=== PATIENT | female | born 1950 | race Caucasian/White ===

== ENCOUNTER → 2016-09-12 | Outpatient (CLI) | payer MEDICARE ==
[~2016-09-12] MED LIST: ACET-749 PO; ALPR0.25 PO; AMLO-110 PO; AMLO5CAP3 PO; ATEN-173 PO; ATOR-24 PO; CHOL1000 PO; MAGN400T6 PO; NVLGI7030 SC; PHEN-775 PO; SERT-234 PO; SULF800T23 PO; TRAMTAB5 PO
--- NOTE | 2016-09-12 17:24 | DIAGNOSTIC IMAGING REPORT ---
KUB HISTORY: URETERIC STONE, N20.1 COMPARISON: KUB 09/05/2016. FINDINGS: The bowel gas pattern is unremarkable. There are no dilated loops of small bowel to suggest an obstruction. Bilateral nephrolithiasis is again noted. Dominant stone within the lower pole the right kidney measures 1 cm. No change in the 9 mm stone within the proximal left ureter. No bladder calculi. No right ureteral calculi. Prior cholecystectomy. No pneumoperitoneum or pneumatosis. IMPRESSION: 1. No change in the 9 mm stone within the proximal left ureter. 2. Stable bilateral nephrolithiasis. Electronically signed by: Jurgen Cooper M.D. 09/12/2016 5:22 PM Dictated Date/Time: 09/12/2016 5:20 PM
== END | disposition home or self-care (01) ==
LOC: C.RAD 16:53
PROVIDERS: ATTEND Urology
DX: N20.1 Calculus of ureter (principal); N20.0 Calculus of kidney

== ENCOUNTER → 2016-09-13 | Day surgery (SDC) | payer BC, MEDICARE ==
--- NOTE | 2016-09-05 15:32 | DIAGNOSTIC IMAGING REPORT ---
CHEST 2 VIEWS ROUTINE CLINICAL HISTORY: Preoperative evaluation. Ureteral stone. COMPARISON STUDY: No previous studies for comparison. FINDINGS: Lung volumes are at the lower limits of normal. There is no pneumothorax or pleural effusion. There are cholecystectomy clips. Pulmonary vascularity is normal. There is no consolidation to suggest pneumonia. Cardiomediastinal silhouette is normal. IMPRESSION: No acute cardiopulmonary findings. Electronically signed by: Tonio Ornelas M.D. 09/05/2016 3:30 PM Dictated Date/Time: 09/05/2016 3:30 PM
--- NOTE | 2016-09-05 15:35 | DIAGNOSTIC IMAGING REPORT ---
KUB CLINICAL HISTORY: Left ureteral stone. COMPARISON STUDY: None. FINDINGS: Multiple bilateral renal calculi are noted. The largest of these is a 7 mm left renal calculus. Note is made of a 1 x 0.5 cm calcification that projects superior to the left transverse process of L4. Pelvic calcifications likely reflect vascular calcifications and phleboliths although distal ureteral calculi would be difficult to exclude. Bowel gas pattern is normal. There are cholecystectomy clips. IMPRESSION: 1. Suspected 1 x 0.5 cm proximal left ureteral calculus. Possible punctate adjacent calculus. 2. Bilateral nephrolithiasis. 3. Numerous pelvic calcifications which likely reflect phleboliths and vascular calcifications although distal ureteral calculi would be difficult to exclude. Electronically signed by: Tonio Ornelas M.D. 09/05/2016 3:33 PM Dictated Date/Time: 09/05/2016 3:31 PM
[2016-09-05 15:54] LABS: BASO % 0.2 %; BASO ABS # 0.02 K/uL (0-0.2); COMPLETE YES; EOS % 3.4 %; HEMATOCRIT 38.5 % (37-47); IG% 0.2 %; LYMPH ABS # 2.71 K/uL (1.2-3.4); MEAN CELL VOLUME 84.2 fL (80-100); MEAN CORPUSCULAR HEMOGLOBIN 29.3 pg (25-34); MEAN CORPUSCULAR HGB CONC 34.8 g/dl (32-36); MEAN PLATELET VOLUME 9.5 fL (7.4-10.4); NEUT % 58.2 %; PLATELET COUNT 226 K/uL (130-400); RED BLOOD COUNT 4.57 M/uL (4.2-5.4)
[2016-09-05 16:29] LABS: BLOOD UREA NITROGEN 20 mg/dl (7-18); BUN/CREATININE RATIO 25.3 (10-20); CALCIUM 9.8 mg/dl (8.5-10.1); CARBON DIOXIDE 29 mmol/L (21-32); CHLORIDE 104 mmol/L (98-107); CREATININE 0.81 mg/dl (0.60-1.20); GLUCOSE 132 mg/dl (70-99); POTASSIUM 3.8 mmol/L (3.5-5.1); SODIUM 141 mmol/L (136-145)
[2016-09-09 12:39] VITALS: Ht 154.9 cm; Wt 65.9 kg
[~2016-09-13] VITALS: Ht 154.9 cm; Wt 65.9 kg
[~2016-09-13] MED LIST changes: +ATROPINE SULFATE 0.1 MG/ML 5ML SYR IV PRN; +CIPROFLOXACIN / D5W 400 MG IV SCH; +DEXAMETHASONE SOD INJ 4 MG/ML VIAL ONE; +EpHEDrine SULFATE 50MG/5ML SYR ONE; +EpHEDrine SULFATE INJ 50 MG/ML AMP IV PRN; +FENTANYL CITRATE INJ 50 MCG/1 ML 2 ML VIAL ONE; +LACTATED RINGER'S 1000ML 1,000 ML IV SCH; +LIDOCAINE HCL 2% 2 ML VIAL (20MG/ML) ONE; +MIDAZOLAM HCL 1 MG/ML 2ML VIAL ONE; +ONDANSETRON INJ 2 MG/ML 2 ML VIAL IV PRN; +ONDANSETRON INJ 2 MG/ML 2 ML VIAL ONE; +PROPOFOL IV EMULSION 10 MG/ML 20 ML VIAL IV ONE; +TRAMADOL/ACETAMINOPHEN 37.5/325MG TAB PO PRN
--- NOTE | 2016-09-13 07:21 | History & Physical Bridge Note ---
H&P Re-Evaluation Bridge Note: I have examined the patient, reviewed the History & Physical and in the interval since the performance of the History & Physical I have noted the following changes of clinical significance: No changes noted
--- NOTE | 2016-09-13 07:53 | [facility] Post Operative Brief Note ---
Immediate Operative Summary Operative Date Sep 13, 2016. Pre-Operative Diagnosis left ureteral stone Post-Operative Diagnosis same Procedure(s) Performed left eswl Surgeon willy Cash Specialist Surgeon(s) none Estimated Blood Loss none Findings left ureteral stone Specimens none
--- NOTE | 2016-09-13 07:57 | Discharge Instructions-SurgCtr ---
Discharge Instructions Visit Reason for Visit: Stones N20.1; Discharge Discharge Diagnosis / Problem: stone Discharge Goals Goal(s): Therapeutic intervention Activity Recommendations Activity Limitations: resume your previous activity (take it easy today) Anesthesia . Post Anesthesia Instructions: If you have had General Anesthesia or IV Sedation: * Do not drive today. * Resume driving when surgeon permits. * Do not make important decisions or sign legal documents today. * Call surgeon for: 1. Temperature elevations greater than 101 degrees F. 2. Uncontrollable pain. 3. Excessive bleeding. 4. Persistent nausea and vomiting. 5. Medication intolerance (nausea, vomiting or rash). * For nausea and vomiting use only clear liquids such as: tea, soda, bouillon until nausea subsides, then gradually increase diet as tolerated. * If you have any concerns or questions, call your surgeon's office. If physician is unavailable and it is an emergency, call 911 or go to the nearest emergency room. . Instructions / Follow-Up Instructions / Follow-Up MEDICATIONS: Resume previous medications unless instructed otherwise by your surgeon. Resume pre-ESWL medication except for aspirin, coumadin or other blood thinners. __ Toradol 10 mg every 6 hours for initial pain. __ Lortab 5 mg 1-2 every 4 hours for pain. __ Percocet 5 mg 1-2 every 4 hours for pain. __ Macrodantin 50 mg x 3 a day. __ Flomax 1 tab daily one half (1/2) hour after supper. _x__ Ultracet 1 tablet efvery 6 hours if needed for pain SPECIAL CARE INSTRUCTIONS: 1. Get KUB (x-ray) _x_ day before or day of office visit and bring x-ray to office __ get x-ray 2 days before and tell office you are getting x-rays when you call for the appointment. 2. Strain ALL urine. 3. Please call if you have a fever, chills, severe pain, or constant dribbling of urine. 4. Office phone number . FOLLOW UP VISIT: Please call the office to schedule a follow-up appointment at . Diet Recommendations Home Diet: resume previous diet Procedures Procedures Performed: Left Extracorporeal Shock Wave Lithotripsy Pending Studies Studies pending at discharge: no Medical Emergencies . Who to Call and When: Medical Emergencies: If at any time you feel your situation is an emergency, please call 911 immediately. . Non-Emergent Contact Non-Emergency issues call your: Urologist . . "Provider Documentation" section prepared by Dimitris Oconnell. [place] Drug Monitoring Program Search Results: patient reviewed within database
[2016-09-13] MEDS: FENTANYL CITRATE INJ 50 MCG/1 ML 2 ML VIAL IV PRN ×2 (08:40→08:49)
--- NOTE | 2016-09-13 09:13 | Anesthesia Progress Nt - [facility] ---
Anesthesia Post Op Note Date & Time Sep 13, 2016 at 09:12 Vital Signs Pain Intensity: 5 Vital Signs Past 12 Hours Date Time Temp Pulse Resp B/P Pulse Ox O2 Delivery O2 Flow Rate FiO2 09/13/16 08:26 36.2 107 16 136/67 97 Mask 6 09/13/16 06:34 36.5 72 16 121/70 96 Room Air Notes Mental Status: alert / awake / arousable, participated in evaluation Pt Amnestic to Procedure: Yes Nausea / Vomiting: adequately controlled Pain: adequately controlled Airway Patency, RR, SpO2: stable & adequate BP & HR: stable & adequate Hydration State: stable & adequate Anesthetic Complications: no major complications apparent
[2016-09-13 09:48] VITALS: TEMP 36.5
[2016-09-13 10:24] VITALS: BP 117/64; PULSE 79; O2SAT 95
--- NOTE | 2016-09-17 13:39 | OPERATIVE REPORT ---
DATE OF OPERATION: 09/13/2016 PREOPERATIVE DIAGNOSIS: Left ureteral calculus. POSTOPERATIVE DIAGNOSIS: Same. PROCEDURE: Extracorporeal shockwave lithotripsy. FINDINGS: KUB showed stone left ureter. SURGEON: Dr. Magana. DRAINS: None. COMPLICATIONS: None. SPECIMENS: None. INDICATIONS: The patient is a 65-year-old white female with a left ureteral stone being brought in for ESWL. DETAILS OF PROCEDURE: The patient was brought to the litho suite. He was correctly identified and the stone was visualized on his most recent x-rays. After the correct time out was performed the patient was positioned over the therapy head. An adequate level of anesthesia was administered. The extracorporeal shockwave lithotripsy treatment was then commenced. Please see the [facility] sheet for complete treatment summary. After completion of the procedure the patient was taken to the recovery room in stable condition. I attest to the content of the Intraoperative Record and any orders documented therein. Any exceptio ns are noted below.
== END | disposition home or self-care (01) ==
LOC: X.SURG 06:18
PROVIDERS: ATTEND Urology
DX: N20.1 Calculus of ureter (principal); I10 Essential (primary) hypertension; E11.9 Type 2 diabetes mellitus without complications; Z79.4 Long term (current) use of insulin

== ENCOUNTER → 2016-09-19 | Outpatient (CLI) | payer MEDICARE ==
[~2016-09-19] MED LIST changes: -ATROPINE SULFATE 0.1 MG/ML 5ML SYR IV PRN; -CIPROFLOXACIN / D5W 400 MG IV SCH; -DEXAMETHASONE SOD INJ 4 MG/ML VIAL ONE; -EpHEDrine SULFATE 50MG/5ML SYR ONE; -EpHEDrine SULFATE INJ 50 MG/ML AMP IV PRN; -FENTANYL CITRATE INJ 50 MCG/1 ML 2 ML VIAL ONE; -LACTATED RINGER'S 1000ML 1,000 ML IV SCH; -LIDOCAINE HCL 2% 2 ML VIAL (20MG/ML) ONE; -MIDAZOLAM HCL 1 MG/ML 2ML VIAL ONE; -ONDANSETRON INJ 2 MG/ML 2 ML VIAL IV PRN; -ONDANSETRON INJ 2 MG/ML 2 ML VIAL ONE; -PROPOFOL IV EMULSION 10 MG/ML 20 ML VIAL IV ONE; -TRAMADOL/ACETAMINOPHEN 37.5/325MG TAB PO PRN
== END | disposition home or self-care (01) ==
LOC: C.LAB 09:55
PROVIDERS: ATTEND Nurse Practitioner Adult Health
DX: N39.0 Urinary tract infection, site not specified (principal)

== ENCOUNTER → 2016-09-25 | Outpatient (CLI) | payer MEDICARE ==
--- NOTE | 2016-09-25 12:55 | DIAGNOSTIC IMAGING REPORT ---
KUB CLINICAL HISTORY: Ureteral stone. FINDINGS: An AP supine abdominal radiograph is compared to study dated 09/12/2016 and correlated with abdominal CT dated 08/20/2016. There is a nonobstructed abdominal bowel gas pattern. Cholecystectomy clips are noted. There are nonobstructing right renal calculi measuring up to 10 mm. Additional calculi are seen projecting over the left kidney. An 8 mm calcification or cluster of calcifications projects over the left vesicoureteral junction. This likely represents progression of the obstructing calculus in the mid left ureter seen on 09/12/2016. No calculi are seen along the course of the right ureter. Skeletal structures are osteopenic. Lumbosacral spondylosis is observed. IMPRESSION: 1. An 8 mm calculus or cluster of calculi is now seen projecting over the left vesicoureteral junction. This likely represents distal passage of the mid ureteral stone seen on 09/12/2016. 2. Additional bilateral nonobstructing renal calculi as above. Electronically signed by: Dimitri Eaton M.D. 09/25/2016 12:54 PM Dictated Date/Time: 09/25/2016 12:36 PM
== END | disposition home or self-care (01) ==
LOC: C.RAD1850 10:05
PROVIDERS: ATTEND Urology
DX: N20.2 Calculus of kidney with calculus of ureter (principal)

== ENCOUNTER → 2016-10-09 | Outpatient (CLI) | payer MEDICARE ==
[2016-10-09 13:58] LABS: BASO % 0.2 %; BASO ABS # 0.01 K/uL (0-0.2); COMPLETE YES; EOS % 2.5 %; HEMATOCRIT 40.2 % (37-47); LYMPH ABS # 2.33 K/uL (1.2-3.4); MEAN CELL VOLUME 85.4 fL (80-100); MEAN CORPUSCULAR HEMOGLOBIN 29.3 pg (25-34); MEAN CORPUSCULAR HGB CONC 34.3 g/dl (32-36); MEAN PLATELET VOLUME 10.2 fL (7.4-10.4); MONO % 6.3 %; PLATELET COUNT 173 K/uL (130-400); RED BLOOD COUNT 4.71 M/uL (4.2-5.4); WHITE BLOOD COUNT 6.48 K/uL (4.8-10.8)
[2016-10-09 14:37] LABS: BLOOD UREA NITROGEN 19 mg/dl (7-18); BUN/CREATININE RATIO 23.2 (10-20); CALCIUM 9.8 mg/dl (8.5-10.1); CARBON DIOXIDE 28 mmol/L (21-32); CHLORIDE 106 mmol/L (98-107); CREATININE 0.81 mg/dl (0.60-1.20); GLUCOSE 89 mg/dl (70-99); POTASSIUM 3.8 mmol/L (3.5-5.1); SODIUM 142 mmol/L (136-145)
== END | disposition home or self-care (01) ==
LOC: C.LAB1850 12:03
PROVIDERS: ATTEND Urology
DX: N20.0 Calculus of kidney (principal); N20.1 Calculus of ureter

== ENCOUNTER → 2016-10-09 | Outpatient (CLI) | payer MEDICARE ==
--- NOTE | 2016-10-09 09:03 | DIAGNOSTIC IMAGING REPORT ---
KUB CLINICAL HISTORY: Ureteral stone. FINDINGS: 2 AP supine abdominal radiographs are compared to study dated 09/25/16 and correlated with abdominal CT dated 08/20/2016. There is a nonobstructed abdominal bowel gas pattern. Cholecystectomy clips are noted. There are nonobstructing right renal calculi measuring up to 10 mm. Additional calculi are seen projecting over the left kidney. An 8 mm calcification or cluster of calcifications projecting over the left vesicoureteral junction is unchanged from 09/25/2016. No calculi are seen along the course of the right ureter. Pelvic phleboliths are noted. The skeletal structures are osteopenic. Lumbosacral spondylosis is observed. IMPRESSION: 1. Unchanged appearance of a calculus or cluster of calculi projecting over the left vesicoureteral junction as compared to the 09/25/2016 examination. 2. Additional bilateral nonobstructing renal calculi as above. Electronically signed by: Dimitri Eaton M.D. 10/09/2016 9:01 AM Dictated Date/Time: 10/09/2016 8:59 AM
== END | disposition home or self-care (01) ==
LOC: C.RAD1850 08:47
PROVIDERS: ATTEND Urology
DX: N20.0 Calculus of kidney (principal); N20.1 Calculus of ureter

== ENCOUNTER → 2016-10-21 | Outpatient (CLI) | payer MEDICARE ==
[~2016-10-21] MED LIST changes: -TRAMTAB5 PO
--- NOTE | 2016-10-21 11:36 | DIAGNOSTIC IMAGING REPORT ---
KUB CLINICAL HISTORY: N20.1 Ureteric [id number] COMPARISON STUDY: 10/09/2016 FINDINGS: There is no pathologic bowel dilatation. There are clustered calcifications projected over the lower pole of the left kidney measuring 9 mm in aggregate. There are calcifications projected over the mid and lower pole the right kidney the largest cluster measuring 9 mm. The findings are consistent with bilateral nephrolithiasis. There are surgical clips the right upper quadrant consistent with a prior cholecystectomy. There are scattered pelvic basin calcifications. No definite ureteral calculi are visualized. IMPRESSION: Bilateral nephrolithiasis. Nonspecific pelvic basin calcifications. Electronically signed by: Michelet Nicolas M.D. 10/21/2016 11:35 AM Dictated Date/Time: 10/21/2016 11:31 AM
== END | disposition home or self-care (01) ==
LOC: C.RAD1850 11:19
PROVIDERS: ATTEND Urology
DX: N20.1 Calculus of ureter (principal); N20.0 Calculus of kidney

== ENCOUNTER → 2016-10-22 | Day surgery (SDC) | payer MEDICARE ==
[2016-10-11 10:03] VITALS: BMI 27.0
[~2016-10-22] VITALS: Ht 154.9 cm; Wt 65.9 kg
[~2016-10-22] MED LIST changes: +ACETAMINOPHEN/CODEINE 300/30MG TAB PO PRN; +ATROPINE SULFATE 0.1 MG/ML 5ML SYR IV PRN; +CIPROFLOXACIN / D5W 400 MG IV SCH; +CONRAY 30% 150ML BOTTLE INSTIL ONE; +EpHEDrine SULFATE 50MG/5ML SYR ONE; +EpHEDrine SULFATE INJ 50 MG/ML AMP IV PRN; +FENTANYL CITRATE INJ 50 MCG/1 ML 2 ML VIAL IV PRN; +FENTANYL CITRATE INJ 50 MCG/1 ML 2 ML VIAL ONE; +KETOROLAC TROMETHAMINE 30 MG/ML VIAL IV. STA; +LACTATED RINGER'S 1000ML 1,000 ML IV SCH; +LIDOCAINE HCL 2% 2 ML VIAL (20MG/ML) ONE; +MIDAZOLAM HCL 1 MG/ML 2ML VIAL ONE; +NURSING VERBAL MED ORDER ONE; +ONDANSETRON INJ 2 MG/ML 2 ML VIAL IV PRN; +ONDANSETRON INJ 2 MG/ML 2 ML VIAL ONE; +PROPOFOL IV EMULSION 10 MG/ML 20 ML VIAL IV ONE; +SODIUM CHLORIDE 0.9% 1000ML 1,000 ML IV SCH
[2016-10-22 05:53] VITALS: BP 134/68; PULSE 60; TEMP 36.5; O2SAT 97; Ht 154.9 cm; Wt 65.9 kg
--- NOTE | 2016-10-22 08:23 | [facility] Post Operative Brief Note ---
Immediate Operative Summary Operative Date Oct 22, 2016. Pre-Operative Diagnosis Nephrolithiasis Post-Operative Diagnosis Nephrolithiasis Procedure(s) Performed Cystoscopy; Left Ureteroscopy; Left Ureteral Stent Insertion; Laser Lithotripsy Surgeon Dr. Bret Gustafson Remote Sensing Technologist Surgeon(s) none Estimated Blood Loss 0 Findings No evidence of continued left ureteral stones. Several small stones within the kidney. These were completely treated with the exception of a stone in the extreme lower pole. This required an approx 270 degree flexion of the scope and I was unable to reach the stone with a laser fiber in place. Specimens None Drains [id number] with string Anesthesia gen Complication(s) None Disposition Recovery Room / PACU (stable)
--- NOTE | 2016-10-22 08:33 | Discharge Instructions ---
Discharge Instructions Admission Reason for Admission: Stones Discharge Discharge Diagnosis / Problem: stones Discharge Goals Goal(s): Decrease discomfort, Improve function, Increase independence, Improve disease control Activity Recommendations Activity Limitations: resume your previous activity Lifting Limitations: none Exercise/Sports Limitations: none May Resume Sexual Activity: when tolerated Shower/Bathe: no limitations Driving or Machine Use: no limitations . Instructions / Follow-Up Instructions / Follow-Up Please come to Dr. Gustafson and Dr. Elam's office on Friday at 11AM to have your stent removed (please do not pull the blue string that is taped to your leg prior to that appointment). Discharge Diet Recommended Diet: Regular Diet Procedures Procedures Performed: Cystoscopy; Left Ureteroscopy; Left Ureteral Stent Insertion; Laser Lithotripsy Pending Studies Studies pending at discharge: no Medical Emergencies . Who to Call and When: Medical Emergencies: If at any time you feel your situation is an emergency, please call 911 immediately. . Non-Emergent Contact Non-Emergency issues call your: Urologist Call Non-Emergent contact if: you have a fever, temperature is above 101.5, your pain is not controlled, your pain is worsening . . "Provider Documentation" section prepared by Rex Figueroa. VTE Core Measure Inpt VTE Proph given/why not?: Treatment not indicated [place] Drug Monitoring Program Search Results: patient reviewed within database (has had several small volume narcotic rx's - all appropriate given her condition)
--- NOTE | 2016-10-22 08:34 | DIAGNOSTIC IMAGING REPORT ---
KUB CLINICAL HISTORY: LT CYSTO/LASER/STENT nephrocalcinosis TECHNIQUE: Image intensifier COMPARISON STUDY: None FINDINGS: Image intensifier utilized for length the left laser lithotripsy and left-sided stent placement. IMPRESSION: Laser lithotripsy and left ureteral stent placement Electronically signed by: Luiz Flood M.D. 10/22/2016 8:32 AM Dictated Date/Time: 10/22/2016 8:31 AM
--- NOTE | 2016-10-22 09:00 | Anesthesiology Progress Note ---
Anesthesia Post Op Note Date & Time Oct 22, 2016 at 09:00 Vital Signs Pain Intensity: 0 Vital Signs Past 12 Hours Date Time Temp Pulse Resp B/P Pulse Ox O2 Delivery O2 Flow Rate FiO2 10/22/16 08:55 88 12 128/68 94 Room Air 10/22/16 08:45 93 12 128/65 99 Mask 10 10/22/16 08:35 99 12 119/62 100 Mask 10 10/22/16 08:27 36.4 75 12 105/59 100 Mask 10 10/22/16 05:53 36.5 60 18 134/68 97 Room Air Notes Mental Status: alert / awake / arousable, participated in evaluation Pt Amnestic to Procedure: Yes Nausea / Vomiting: adequately controlled Pain: adequately controlled Airway Patency, RR, SpO2: stable & adequate BP & HR: stable & adequate Hydration State: stable & adequate Anesthetic Complications: no major complications apparent
--- NOTE | 2016-10-22 09:09 | OPERATIVE REPORT ---
DATE OF OPERATION: 10/22/2016 PREOPERATIVE DIAGNOSIS: Left nephrolithiasis. POSTOPERATIVE DIAGNOSIS: Left nephrolithiasis. PROCEDURES PERFORMED: Cystoscopy, left ureteroscopy, left laser lithotripsy, left ureteral stent placement 6 New Ze[place]ander x 24 cm with a string. ANESTHESIA: General. ESTIMATED BLOOD LOSS: 0. URINE OUTPUT: Not recorded. SPECIMENS: None. COMPLICATIONS: None. DESCRIPTION OF THE PROCEDURE: Savannah Braun was identified in the preoperative holding area. Appropriate informed consents were reviewed and completed and the patient was transported to the operating suite. She received Cipro upon arrival and after induction of general anesthesia she was sterilely prepped and draped in standard fashion. I then passed a 22 [place] cystoscope with 30 degree lens and full inspection of the bladder was carried out without evidence of any mucosal abnormalities. Ureteral orifices were in orthotopic position. I then cannulated the distal left ureter with a 10-[place] double-lumen catheter placed just at the UO. I performed a retrograde pyelogram which revealed no hydronephrosis and no filling defects within the ureter. I then placed 2 wires via this catheter and both were advanced to the kidney without difficulty. I then withdrew the 10-[place]ander double lumen catheter and placed a flexible fiberoptic ureteroscope to the level of the kidney. Full renoscopy was carried out. There were several small Wesley's plaques as well as 2 stones visualized in the lower pole. These were in close proximity to each other, albeit in separate calices. The larger of the 2 stones was in the extremely dependent portion of the kidney and required nearly 270 degree flexion of the scope to reach it. The other was just less than that with about 180 degree flexion of the scope. I passed our smallest laser fiber and freed all of the Wesley's plaques, as well as treated the stone that was at around 180 degree flexion. I attempted to reach the 270 degree stone; however, I was unable to completely flex the scope adequately to reach this. After numerous efforts to flush this out, I decided to leave this stone alone and clear the kidney of all other fragments before exiting the kidney. I confirmed that there were no other large retained fragments and I performed a careful exit ureteroscopy which revealed no ureteral stones at all. I placed a 6 [place] 24 cm double-J ureteral stent over an existing safety wire seeing a good curl in the kidney, as well as the bladder. A dangling string was left attached to the stent and was taped to her left inner thigh. The patient was subsequently extubated and taken to the PACU in stable condition. I attest to the content of the Intraoperative Record and any orders documented therein. Any exceptio ns are noted below.
[2016-10-22 09:10] VITALS: BP 122/65; PULSE 88; TEMP 36.8; O2SAT 93
[2016-10-22 09:40] VITALS: BP 109/58; PULSE 88; TEMP 36.4; O2SAT 94
[2016-10-22 10:10] VITALS: BP 121/67; PULSE 82; TEMP 36.6; O2SAT 95
== END | disposition home or self-care (01) ==
LOC: C.ACU 04:59
PROVIDERS: ATTEND Urology
DX: N20.0 Calculus of kidney (principal); E11.9 Type 2 diabetes mellitus without complications; I10 Essential (primary) hypertension; N39.0 Urinary tract infection, site not specified; Z87.891 Personal history of nicotine dependence; Z82.49 Family history of ischemic heart disease and other diseases of the circulatory system

== ENCOUNTER → 2016-10-25 | Outpatient (CLI) | payer MEDICARE ==
[~2016-10-25] MED LIST changes: -ACETAMINOPHEN/CODEINE 300/30MG TAB PO PRN; -ATROPINE SULFATE 0.1 MG/ML 5ML SYR IV PRN; -CIPROFLOXACIN / D5W 400 MG IV SCH; -CONRAY 30% 150ML BOTTLE INSTIL ONE; -EpHEDrine SULFATE 50MG/5ML SYR ONE; -EpHEDrine SULFATE INJ 50 MG/ML AMP IV PRN; -FENTANYL CITRATE INJ 50 MCG/1 ML 2 ML VIAL IV PRN; -FENTANYL CITRATE INJ 50 MCG/1 ML 2 ML VIAL ONE; -KETOROLAC TROMETHAMINE 30 MG/ML VIAL IV. STA; -LACTATED RINGER'S 1000ML 1,000 ML IV SCH; -LIDOCAINE HCL 2% 2 ML VIAL (20MG/ML) ONE; -MIDAZOLAM HCL 1 MG/ML 2ML VIAL ONE; -NURSING VERBAL MED ORDER ONE; -ONDANSETRON INJ 2 MG/ML 2 ML VIAL IV PRN; -ONDANSETRON INJ 2 MG/ML 2 ML VIAL ONE; -PROPOFOL IV EMULSION 10 MG/ML 20 ML VIAL IV ONE; -SODIUM CHLORIDE 0.9% 1000ML 1,000 ML IV SCH
== END | disposition home or self-care (01) ==
LOC: C.LABSPEC 17:01
PROVIDERS: ATTEND Nurse Practitioner Family
DX: N39.0 Urinary tract infection, site not specified (principal); N20.0 Calculus of kidney